=== PATIENT | male | born 1970 | race Caucasian/White ===

== ENCOUNTER 2016-11-13 12:51 | Emergency (ER) | payer BC, OTHER ==
[~2016-11-13] VITALS: Ht 182.9 cm; Wt 119.7 kg
--- NOTE | 2016-11-13 13:59 | PHYS DOC ---
General Chief Complaint: ABDOMINAL PAIN Stated Complaint: N/V;DIAHHREA SINCE THE Time Seen by MD: 13:56 Source: patient Exam Limitations: no limitations Problems: History of Present Illness Initial Comments Pt is 46/M to ED requesting work note. Pt states 11/07-yesterday he had n/v/d with myalgias and WINSTON. Sx have resolved pt with mild loose stools but states he needs note to return to work. Supposed to work tonight, refuses workup with sx resolution states his glucose normal. Timing/Duration: 1 week Severity: moderate Modifying Factors: worse with eating, improves with medication, improves with rest Associated Symptoms: diaphoresis, fever/chills, headaches, nausea/vomiting, other Allergies: Coded Allergies: Penicillins (Verified Allergy, Unknown, 06/04/16) diphenhydramine (Verified Allergy, Unknown, 06/04/16) Past Medical History Medical History: diabetes Surgical History: noncontributory Social History Smoker: less than 1 pack/day Alcohol: none Drugs: none Review of Systems Constitutional: see HPI Respiratory: denies cough, denies shortness of breath Cardiovascular: denies chest pain, denies palpitations Gastrointestinal: see HPI Genitourinary: denies dysuria, denies frequency, denies hematuria Musculoskeletal: denies back pain, denies joint swelling, denies neck pain Psychiatric/Neurological: denies numbness, denies paresthesia Physical Exam General Appearance: WD/WN, no apparent distress Ear, Nose, Throat: normal ENT inspection Respiratory: normal breath sounds, no respiratory distress Gastrointestinal: non tender, soft Extremities: normal range of motion, normal inspection Neurologic/Psychiatric: steward/stewardess third class II-XII nml as tested, no motor/sensory deficits, alert, normal mood/affect, oriented x 3 Skin: normal color, warm/dry Departure Time of Disposition: 13:57 Disposition: 01 HOME, SELF-CARE Diagnosis: gastroenteritis Condition: IMPROVED Patient Instructions: Viral Gastroenteritis, [id number] Additional Instructions: Aggressive hydration with gatorade, water. Cultured yogurt daily to restore normal gut malcolm. Discontinue smoking. Follow up with your doctor, return to ED as needed. Return to work note given. NATALIYA GAITAN DO November 13, 2016 13:59
[2016-11-13 14:18] VITALS: BP 143/82
== END 2016-11-13 14:18 | disposition home or self-care (01) ==
LOC: ER 12:51
DX: K52.9 Noninfective gastroenteritis and colitis, unspecified (principal); E11.9 Type 2 diabetes mellitus without complications; F17.200 Nicotine dependence, unspecified, uncomplicated; Z88.0 Allergy status to penicillin; Z88.8 Allergy status to other drugs, medicaments and biological substances
CPT/HCPCS: 99281

== ENCOUNTER 2017-01-03 11:42 | Emergency (ER) | payer BC | END 2017-01-03 12:00 | disposition home or self-care (01) | LOC: ER 11:42 | DX: R11.10 Vomiting, unspecified (principal); R19.7 Diarrhea, unspecified; Z53.21 Procedure and treatment not carried out due to patient leaving prior to being seen by health care provider ==

== ENCOUNTER 2017-02-05 13:49 | Emergency (ER) | payer BC ==
[2017-02-05 14:05] VITALS: BP 152/94
--- NOTE | 2017-02-05 14:46 | PHYS DOC ---
Past History Past Medical History: Diabetes, High Cholesterol Past Surgical History: No Surgical History Alcohol Use: Occasionally Drug Use: None Adult General Chief Complaint Chief Complaint: General Complaint HPI HPI Patient is a 46-year-old male who presents ambulatory to the ED requesting a note that he can return to work. Patient states on January 29 he had quite a bit of diarrhea and a small amount of vomiting. No fevers with that. That cleared up and he has been perfectly fine for a couple of days. He's had no further vomiting or diarrhea. He is scheduled to return to work tomorrow and he needs a note to do so. Review of Systems Review of Systems Constitutional: Denies fever or chills [] GI: Denies abdominal pain, nausea, vomiting, bloody stools or diarrhea [] Allergies Allergies Allergies Coded Allergies Type Severity Reaction Last Updated Verified Penicillins Allergy Unknown 06/04/16 Yes diphenhydramine Allergy Unknown 06/04/16 Yes Physical Exam Physical Exam Constitutional: Well developed, well nourished, no acute distress, non-toxic appearance. [] HENT: Normocephalic, atraumatic, bilateral external ears normal, nose normal. [ ] Eyes: conjunctiva normal, no discharge. [] Neck: Normal range of motion, no stridor. [] Skin: Warm, dry, no erythema, no rash. [] Neurologic: Alert and oriented X 3, normal motor function, no focal deficits noted. [] Current Patient Data Vital Signs Vital Signs Date Time Temp Pulse Resp B/P (MAP) Pulse Ox O2 Delivery O2 Flow Rate FiO2 02/05/17 14:05 98.0 98 16 96 Room Air EKG EKG [] Radiology/Procedures Radiology/Procedures [] Course & Med Decision Making Course & Med Decision Making Pertinent Labs and Imaging studies reviewed. (See chart for details) [] Dragon Disclaimer Dragon Disclaimer This chart was dictated in whole or in part using Voice Recognition software in a busy, high-work load, and often noisy Emergency Department environment. It may contain unintended and wholly unrecognized errors or omissions. Departure Departure: Impression: Primary Impression: Viral gastroenteritis Disposition: HOME, SELF-CARE Condition: IMPROVED Referrals: CEFERINO PILLAI MD (PCP) Patient Instructions: Viral Gastroenteritis, [id number] POP MARIA MD Feb 05, 2017 14:46
== END 2017-02-05 14:49 | disposition home or self-care (01) ==
LOC: ER 13:49
DX: A08.4 Viral intestinal infection, unspecified (principal); E11.9 Type 2 diabetes mellitus without complications; E78.00 Pure hypercholesterolemia, unspecified; Z88.0 Allergy status to penicillin; Z88.8 Allergy status to other drugs, medicaments and biological substances
CPT/HCPCS: 99281